=== PATIENT | male | born 1965 | race Caucasian/White ===

== ENCOUNTER → 2017-11-19 | Outpatient (CLI) | payer MEDICAID ==
[~2017-11-19] MED LIST: LISINOPRIL40 MG PO; METFORMIN1000 MG PO
== END ==
LOC: COL.RAD 14:15
DX: R93.429 Abnormal radiologic findings on diagnostic imaging of unspecified kidney (principal); N18.3 Chronic kidney disease, stage 3 (moderate); Z96.0 Presence of urogenital implants

== ENCOUNTER 2017-12-17 12:21 | Day surgery (SDC) | payer MEDICAID ==
[~2017-12-17] VITALS: Ht 182.9 cm; Wt 102.1 kg
[2017-12-17] MEDS ORDERED: CANA100T PO (12:39)
[2017-12-17] MEDS ORDERED: VALIUM 10MG10 MG/TAB PO (12:39)
[2017-12-17] MEDS ORDERED: PRILOSEC 20MG20 MG PO (12:39)
[2017-12-17] MEDS ORDERED: NEURONTIN100 MG/CAP PO (12:40)
[2017-12-17] MEDS ORDERED: LIPITOR20 MG PO (12:40)
[2017-12-17] MEDS ORDERED: CELEXA40 MG PO (12:41)
[2017-12-17] MEDS ORDERED: GLUCOTROL10 MG PO (12:42)
[2017-12-17 13:14] VITALS: BP 135/91; PULSE 81; TEMP 98.2
[2017-12-17 14:20] VITALS: BP 122/75; PULSE 68; TEMP 97.9
[2017-12-17 14:35] VITALS: BP 125/94; PULSE 87
[2017-12-17 14:50] VITALS: BP 113/77; PULSE 89
== END 2017-12-17 15:10 | disposition home or self-care (01) ==
LOC: SDCO 12:21
DX: Z12.11 Encounter for screening for malignant neoplasm of colon (principal); K64.0 First degree hemorrhoids; I10 Essential (primary) hypertension; E11.9 Type 2 diabetes mellitus without complications; Z79.84 Long term (current) use of oral hypoglycemic drugs; Z79.899 Other long term (current) drug therapy; K21.9 Gastro-esophageal reflux disease without esophagitis
CPT/HCPCS: OP; J2704; J7030